=== PATIENT | male | born 1950 | race Caucasian/White ===

== ENCOUNTER 2017-08-24 09:44 | Emergency (ER) | payer MEDICARE ==
[2017-08-24] MEDS ORDERED: predniSONE 20 MG TAB ONE (10:08)
== END 2017-08-24 10:20 | disposition home or self-care (01) ==
LOC: MADERS 09:44
DX: T63.441A Toxic effect of venom of bees, accidental (unintentional), initial encounter (principal); I10 Essential (primary) hypertension; E78.5 Hyperlipidemia, unspecified
CPT/HCPCS: 99282; J7506